=== PATIENT | male | born 1965 | race African-American/Black ===

== ENCOUNTER 2018-05-18 17:10 | Inpatient (IN) | payer OTHER ==
[~2018-05-18] VITALS: Ht 175.3 cm; Wt 98.4 kg
--- NOTE | ~2018-05-18 | P ---
[facility] [place] [address] PROCEDURE REPORT Name: IRENE BERNABE Hector Room #: 457-P ADM IN .R.#: [id number] Admission: 05/18/18 Attend Phys: Kofi Silav MD Discharge: Date of : 69 Report #: [id number] THIS REPORT FOR: //name// CC: CONSUELO physician/PCP Kofi Silva MD NO PCP DATE OF SERVICE: 05/23/2018 PROCEDURE PERFORMED: Upper endoscopy with biopsies. HISTORY OF PRESENT ILLNESS: The patient is a 53-year-old male who was admitted with abdominal pain and chest pain. Cardiac workup has been negative. A CT of his chest was negative for pulmonary embolus. He had a mildly elevated D-dimer. However, the CT of the chest did show hepatic masses which may be due to metastatic disease, which is a new finding. CT scan of the abdomen and pelvis also showing the hepatic masses, no other significant abnormalities other than a possible lesion in the tail of the pancreas. The patient has never had an EGD or colonoscopy. Plan is for EGD and colonoscopy today. DESCRIPTION OF PROCEDURE: The risks and benefits of the procedure were explained to the patient, those risks including but not limited to bleeding, perforation, the risk of sedation. He understood these risks and gave informed consent. Sedation was given using propofol per Anesthesia. Next, using a standard Olympus upper endoscope, the scope was placed in the patient's mouth and advanced under direct vision through the esophagus, stomach and into the second portion of the duodenum. The larynx was normal in appearance. The upper esophagus was normal. Throughout, the mid and distal esophagus, severe grade D erosive esophagitis was noted. No evidence of bleeding. No masses were seen. Overall, the gastric mucosa was normal. Biopsies were obtained to rule out H. pylori. The pylorus was normal and patent. Multiple superficial, clean, white-based ulcers were noted in the duodenal bulb and first portion. The second portion of the duodenum was normal. The scope was then withdrawn and the procedure terminated. The patient tolerated the procedure well. IMPRESSION: 1. Severe grade D erosive esophagitis. 2. Multiple duodenal ulcers. 3. No evidence of bleeding. RECOMMENDATIONS: 1. Await biopsy results. 2. Continue daily b.i.d. PPI therapy and we will add liquid Carafate at this time. We will proceed with colonoscopy next today. [address] [address] PROCEDURE REPORT Name: IRENE BERNABE Room #: 457-P [facility] IN .R.#: [id number] Admission: 05/18/18 Attend Phys: Kofi Silva MD Discharge: Date of : 69 Report #: [id number] Thank you for allowing me to participate in his care. <ELECTRONICALLY SIGNED> By: Vladimir Watson MD 05/24/18 1048 0913 0946 Vladimir Watson MD /rj
--- NOTE | ~2018-05-18 | 2DMMODE ---
[facility] [address] [place] [address] 2 D/M-MODE ECHOCARDIOGRAM Name: IRENE BERNABE Room #: 457-P [facility] IN ..#: [id number] Admission: 05/18/18 Attend Phys: Kofi Silva MD Discharge: Date of : 69 Date of Service: 05/19/18 0855 Report #: [id number] THIS REPORT FOR: //name// APPROVED REPORT Study performed: 05/19/2018 08:29:52 EXAM: Comprehensive 2D, Doppler, and color-flow Echocardiogram Patient Location: Echo lab Room #: [facility] Status: routine BSA: 2.13 HR: 83 bpm BP: 151/101 mmHg Rhythm: NSR Other Information Study Quality: Good Indications Dyspnea Chest Pain 2D Dimensions RVDd: 39.38 mm IVSd: 11.96 (7-11mm) LVOT Diam: 22.61 (18-24mm) LVDd: 46.55 mm PWd: 12.03 (7-11mm) Ascending Ao: 29.90 (22-36mm) LVDs: 31.66 (25-40mm) Aortic Root: 26.27 mm IVC: 14.00 mm Volumes Left Atrial Volume (Systole) Single Plane 4CH: 35.49 mL Single Plane 2CH: 48.62 mL LA ESV Index: 21.00 mL/m2 Aortic Valve AoV Peak Mario.: 1.33 m/s AO Peak Gr.: 7.05 mmHg LVOT Max P.20 mmHg LVOT Max V: 1.03 m/s JOANNE Vmax: 3.10 cm2 Mitral Valve E/A Ratio: 1.5 MV Decel. Time: 189.[address] [facility] [address] [place] [address] 2 D/M-MODE ECHOCARDIOGRAM Name: JEROMEJORDANIRENE Room #: 457-P [facility] IN [facility].#: [id number] Admission: 05/18/18 Attend Phys: Kofi Silva MD Discharge: Date of : 69 Date of Service: 05/19/18 0855 Report #: [id number] MV E Max Mario.: 0.92 m/s MV A Mario.: 0.61 m/s MV PHT: 54.84 ms IVRT: 83.04 ms Pulmonary Valve PV Peak Mario.: 1.22 m/s PV Peak Gr.: 5.99 mmHg Pulmonary Vein P Vein S: 0.57 m/s P Vein A: 0.30 m/s P Vein D: 0.54 m/s P Vein A Dur.: 101.5 msec P Vein S/D Ratio: 1.06 Tricuspid Valve TR Peak Mario.: 2.38 m/s TR Peak Gr.: 22.57 mmHg PA Pressure: 27.00 mmHg Left Ventricle The left ventricle is normal size. There is normal LV segmental wall motion. There is normal left ventricular wall thickness. Left ventricular systolic function is normal. The left ventricular ejection fraction is within the normal range. LVEF is 55-60%. The left ventricular diastolic function is normal. Right Ventricle The right ventricle is normal size. The right ventricular systolic function is normal. Atria The left atrium size is normal. The right atrium size is normal. Aortic Valve The aortic valve is normal in structure. No aortic regurgitation is present. There is no aortic valvular stenosis. Mitral Valve The mitral valve is normal in structure. Trace mitral regurgitation. No evidence of mitral valve stenosis. Tricuspid Valve The tricuspid valve is normal in structure. There is trace tricuspid regurgitation. Estimated PAP 27 mmHg. There is no pulmonary hypertension. [place] [id number] 2 D/M-MODE ECHOCARDIOGRAM Name: JEROMEJORADNIRENE Room #: 457-P [facility] IN ..#: [id number] Admission: 05/18/18 Attend Phys: Kofi Silva MD Discharge: Date of : 69 Date of Service: 05/19/18 0855 Report #: [id number] Pulmonic Valve The pulmonary valve is normal in structure. There is no pulmonic valvular regurgitation. Great Vessels The aortic root is normal in size. IVC is normal in size and collapses >50% with inspiration. Pericardium There is no pericardial effusion. <Conclusion> 1. Normal echocardiogram with Doppler. EF 60% 2. Pulmonary artery pressure of 27mmHg 3. No pericardial effusion <ELECTRONICALLY SIGNED> By: Bashir May MD, FACC 05/19/18854 4 4 Bashir May MD, FACC /INF
--- NOTE | ~2018-05-18 | P ---
[facility] [place] [address] PROCEDURE REPORT Name: IRENE BERNABE Room #: 457-P ADM IN .R.#: [id number] Admission: 05/18/18 Attend Phys: Kofi Silva MD Discharge: Date of : 69 Report #: [id number] THIS REPORT FOR: //name// CC: CONSUELO physician/PCP Kofi Silva MD NO PCP DATE OF SERVICE: 05/23/2018 PROCEDURE PERFORMED: Colonoscopy with biopsies. HISTORY OF PRESENT ILLNESS: The patient is a 53-year-old male who was admitted with abdominal pain, chest pain, elevated D-dimer. A CT scan of the chest initially showed masses in the liver consistent with possible liver metastasis. Upper endoscopy was just performed showing severe grade D erosive esophagitis and duodenal ulcers, but no masses. The patient has never had a colonoscopy. Plan is for colonoscopy next today. DESCRIPTION OF PROCEDURE: The risks and benefits of the procedure were explained to the patient. Those risks including but not limited to bleeding, perforation, and the risk of sedation. He understood these risks and gave informed consent. Sedation was given using propofol per anesthesia. Next, a digital rectal exam was initially performed, which was normal. Next, using a standard Olympus colonoscope, the scope was placed in the patient's anus and advanced under direct vision to the cecum. The overall prep was good. The cecum and ileocecal valve were normal in appearance. Ascending, transverse, descending colon were normal. In the sigmoid colon, a 4 mm sessile polyp was noted. This was removed with cold forceps, otherwise normal. The rectal mucosa was normal. On retroflexion, no abnormalities were noted. The scope was then withdrawn and the procedure terminated. The patient tolerated the procedure well. IMPRESSION: 1. Small colonic polyp. 2. Otherwise, normal colonoscopy. RECOMMENDATIONS: 1. Await biopsy results. 2. Plan is for liver biopsy on Friday of hepatic mass. [facility] [address] [place] [address] PROCEDURE REPORT Name: JEROMEJORDANIRENE Room #: 457-P [facility] IN [facility].#: [id number] Admission: 05/18/18 Attend Phys: Kofi Silva MD Discharge: Date of : 69 Report #: [id number] Thank you for allowing me to participate in his care. <ELECTRONICALLY SIGNED> By: Vladimir Watson MD 05/24/18 1048 0936 1744 Vladimir Watson MD /nt
--- NOTE | ~2018-05-18 | EKG ---
[address] [place] [address] ELECTROCARDIOGRAM REPORT Name: IRENE BERNABE Room #: 457-P ADM IN M.R.#: [id number] Admission: 05/18/18 Attend Phys: Kofi Silva MD Discharge: Date of : 69 Report #: [id number] THIS REPORT FOR: //name// [facility] Test Date: 2018-05-22 Test Time: 15:27:40 Pat Name: IRENE BERNABE Department: Room: 457 Gender: M Administrative Secretary: Max RUIZ : 1965 Requested By: Yung Loomis Order Number: [id number] MD: Bashir May Measurements Intervals [place] Rate: 101 P: 36 CT: 126 QRS: 37 QRSD: 90 T: 171 QT: 340 QTc: 441 Interpretive Statements Sinus tachycardia Nonspecific T abnormalities, lateral leads Compared to ECG 05/19/2018 06:56:12 T-wave abnormality now present Electronically Signed On 05-23-2018 10:57:42 REGULATOR PIN INSERTER by Bashir May [email or web address] <ELECTRONICALLY SIGNED> By: Bashir May MD, [facility] 05/23/18 1057 1527 1527 Bashir May MD, [facility] /EPI
--- NOTE | ~2018-05-18 | EKG ---
[address] [address] ELECTROCARDIOGRAM REPORT Name: IRENE BERNABE Room #: 457-P ADM IN M.R.#: [id number] Admission: 05/18/18 Attend Phys: Kofi Silva MD Discharge: Date of : 69 Report #: [id number] THIS REPORT FOR: //name// [facility] ED Test Date: 2018-05-18 Test Time: 17:15:38 Pat Name: IRENE BERNABE Department: Room: [facility] Gender: M Supervisor Facepiece Line: NEHA : 1965 Requested By: Dayday Ring Order Number: [id number] MD: Wesley Marks Measurements Intervals [place] Rate: 114 P: 39 VT: 143 QRS: 27 QRSD: 84 T: 32 QT: 323 QTc: 445 Interpretive Statements Sinus tachycardia Consider left ventricular hypertrophy Baseline wander in lead(s) V1 Compared to ECG 12/03/2010 14:33:18 Sinus rhythm no longer present Electronically Signed On 05-18-2018 21:42:45 FORESTRY FIRE AIDE by Wesley Marks [email or web address] <ELECTRONICALLY SIGNED> By: Wesley Marks MD 05/18/18 2142 1715 Wesley Marks MD /EPI
--- NOTE | ~2018-05-18 | HC ---
[facility] [place] [address] CONSULTATION Name: IRENE BERNABE Hector Room #: 457-P ADM IN M.R.#: [id number] Admission: 05/18/18 Attend Phys: Kofi Silva MD Discharge: Date of : 69 Report #: [id number] THIS REPORT FOR: //name// CC: Marie Meza DO [facility] physician/PCP Kofi Silva MD NO PCP DATE OF SERVICE: 05/20/2018 REASON FOR CONSULTATION: Abnormal CAT scan of the abdomen, specifically liver, provided by Dr. Bo Phelps. HISTORY OF PRESENT ILLNESS: The patient is a very pleasant 53-year-old male from [place], who was admitted because of chest discomfort of maybe about several hours duration. When he came here, a CAT scan of the chest showed some questionable changes in the liver and repeat additional imaging has shown there were some changes in the liver for metastatic cancer. The patient, before this, denied any fevers, chills, nausea, vomiting or new arm or leg swelling. He does have occasional headaches. He has bowel movements about every 2 days. The chest discomfort had resolved by the time I had seen him. The scans here include a CTA chest that showed no pulmonary embolism, but did show there were some changes for metastatic disease to the liver. A subsequent CT abdomen showed a left lobe mass, measuring 5.6 x 4.6 cm; an additional mass in the left lobe, measuring 3.3 x 2.4 and a right lobe, measuring 15 x 10 mm. There were also multiple lesions in the right lobe. Pancreas had calcification to the tail with slight hypodensity and there may be a tail mass measuring 2 x 2.2 cm. Gallbladder was normal. Spleen was normal, though there was a calcified lesion. Adrenal glands were normal. No significant retroperitoneal adenopathy. LABORATORY DATA: Lab work here notable for BUN of 14, creatinine 0.9. AST slightly elevated at 6439 today, alkaline phosphatase 125 and ALT elevated at 70. Albumin 3.1. White count 5.1, hemoglobin 13.8, MCV 85.3 and platelets 281,000. Differential normal. Hepatitis A, B and C tests were negative, if I understand and interpret them correctly. CEA and CA-125 pending. CA 19-9 was 31. FAMILY HISTORY: He does not know much about his mother or his father. He has two sisters, alive and well and two daughters, alive and well. 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 He works sometimes for [employer]. He stopped smoking about a year ago. Occasional alcohol, would need to clarify. No street drugs. [facility] [address] [address] CONSULTATION Name: IRENE BERNABE Hector Room #: 457-P [facility] IN M.R.#: [id number] Admission: 05/18/18 Attend Phys: Kofi Silva MD Discharge: Date of : 69 Report #: [id number] PHYSICAL EXAMINATION: GENERAL: The patient appears his stated age. VITAL SIGNS: His height is 6, reported as 5 feet 9 inches or 175.3 cm. Weight 216.9 pounds or 98.4 kilograms. Blood pressure on 05/20/2018 was 133/83, O2 sat 97%, pulse 75 and respirations 16. He has been afebrile. MOOD: He is alert, pleasant. NEUROLOGIC: Face is symmetric. Moving arms and legs. Speech and thought pattern appear to be normal. LYMPHATICS: No enlarged lymph nodes in the supraclavicular, cervical, axillary, inguinal or epitrochlear region. ABDOMEN: Slightly obese, maybe slightly tender related to constipation. No obvious masses. No fluid wave. EXTREMITIES: Without clubbing, cyanosis or edema. ASSESSMENT AND PLAN: 1. Abnormal CT of the abdomen, worrisome for metastatic changes. Discussed with the patient that we are aware this may be cancer, though it could be infection or could be geographic changes. I agree with the plans for image-guided biopsy. 2. Hypertension. Defer to others. 3. Constipation and metastasis to the liver that is obvious primary. I agree with plans for EGD and colonoscopy. We will follow with you. <ELECTRONICALLY SIGNED> By: Bo Phelps MD 05/21/18 1646 0826 0940 Bo Phelps MD /nt
--- NOTE | ~2018-05-18 | EKG ---
[address] [address] ELECTROCARDIOGRAM REPORT Name: IRENE BERNABE Room #: 457-P ADM IN M.R.#: [id number] Admission: 05/18/18 Attend Phys: Kofi Silva MD Discharge: Date of : 69 Report #: [id number] THIS REPORT FOR: //name// [facility] Test Date: 2018-05-19 Test Time: 06:56:12 Pat Name: IRENE BERNABE Department: Room: 457 Gender: M Tack Driller: ARUNA : 1965 Requested By: Krista Wheeler Order Number: [id number] MD: Bashir May Measurements Intervals [place] Rate: 86 P: 27 MS: 138 QRS: 28 QRSD: 89 T: 22 QT: 345 QTc: 413 Interpretive Statements Sinus rhythm Normal tracing Compared to ECG 05/18/2018 17:15:38 Sinus tachycardia no longer present Electronically Signed On 05-19-2018 8:41:05 TEST MAN by Bashir May [email or web address] <ELECTRONICALLY SIGNED> By: Bashir May MD, [facility] 05/19/18 0841 0656 0656 Bashir May MD, FACC /EPI
--- NOTE | ~2018-05-18 | PATH ---
[facility] [address] [place] [address] PATHOLOGY RPT PROCEDURE Name: IRENE BERNABE Hector Room #: 220-P [facility] IN M.R.#: [id number] Admission: 05/18/18 Date of : 69 Discharge: 05/25/18 Report #: [id number] Path Case #: [id number] [facility] Accession Number: [id number] . 01 Material submitted: . LIVER, LT LOBE 3 CORES . 01 Clinical history: . Left lobe 3 cores . 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 . (IUV:mml; 05/27/18) QLM/05/27/2018 . 02 Comment: History of multiple liver masses, as well as a pancreatic tail mass is gathered. Based on the morphology of the tumor, immunohistochemical stains are ordered. The tumor shows membranous reactivity to CK19. The tumor is mostly nonreactive to Hep-Par, CK7 and CD68. Based on the non-reactive immunohistochemical stains, a fibrolamellar carcinoma, or hepatocellular carcinoma are not likely. 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 Focal luminal reactivity is noted to CEA-monoclonal. Dr. Maame Castro has seen this case and concurs with my diagnosis. The findings of this case discussed with Dr. Bo Phelps in the morning of 05/27/18. . (IUV:mml; 05/27/18) . 02 Electronically signed: . Kylee Bay MD, Pathologist NPI- [id number] . 01 Gross description: . The specimen is received in formalin, labeled "Irene Bernabe, left lobe liver" and consists of 5 needle cores of lawrence-brown tissue measuring between 0.3 cm and 2.5 cm in length and 0.1 cm or less each in diameter. They are entirely submitted in A1. (SDY; 05/25/2018) SYU/SYU . 02 Pathologist provided ICD-10: [address] [address] PATHOLOGY RPT PROCEDURE Name: IRENE BERNABE Room #: 220-P [facility] IN M.R.#: [id number] Admission: 05/18/18 Date of : 69 Discharge: 05/25/18 Report #: [id number] Path Case #: [id number] C78.7 . 02 CPT . 208632, [id number], [id number] Specimen Comment: A courtesy copy of this report has been sent to Specimen Comment: [phone]. Specimen Comment: Report sent to Performed at: [address], [place], [place] [id number] MD Yoni Simental MD Phone: [phone] Performed at: [address] [id number] MD Kylee Bay MD Phone: [phone]
--- NOTE | ~2018-05-18 | PATH ---
[facility] [address] [place] [address] PATHOLOGY RPT PROCEDURE Name: FLORECITAIRENE Hector Room #: 220-P DIS IN M.R.#: [id number] Admission: 05/18/18 Date of : 69 Discharge: 05/25/18 Report #: [id number] Path Case #: [id number] [facility] Accession Number: [id number] . 01 Material submitted: . PART A: GASTRIC BX PART B: POLYP AT SIGMOID COLON . 01 Clinical history: . A: Rule out H. pylori and duodenal ulcer . 02 Diagnosis: A. Gastric mucosa, gastric rule out Helicobacter pylori and duodenal ulcer, endoscopic biopsy: - Features of mild reactive gastropathy. - Negative for intestinal metaplasia or atrophy. - Negative for Helicobacter pylori (properly controlled immunohistochemical stain performed). . B. Polyp, at sigmoid colon, endoscopic biopsy: - Hyperplastic polyp. - Negative for dysplasia. . (IUV:at;05/26/2018) QTA/05/26/2018 . 02 Electronically signed: . Kylee Bay MD, Pathologist NPI- [id number] . 01 Gross description: . A. The specimen is received in formalin, labeled "Irene Bernabe, gastric BX" and consists of multiple fragments of soft lawrence tissue measuring 0.9 x 0.6 x 0.2 cm in aggregate which are entirely submitted in A1. . B. The specimen is received in formalin, labeled "Irene Bernabe, polyp at sigmoid colon" and consists of 2 fragments of soft lawrence tissue measuring 0.4 x 0.2 x 0.1 cm and 0.3 x 0.2 x 0.2 cm. They are entirely submitted in B1. (SDY; 05/25/2018) SYU/SYU . 02 Pathologist provided ICD-10: K31.9, K63.5 . [address] [facility] [place] [address] PATHOLOGY RPT PROCEDURE Name: IRENE BERNABE Hector Room #: 220-P [facility]#: [id number] Admission: 05/18/18 Date of : 69 Discharge: 05/25/18 Report #: [id number] Path Case #: [id number] Specimen Comment: A courtesy copy of this report has been sent to Specimen Comment: [phone], . Specimen Comment: Report sent to / DR GONZALEZ Performed at: [address] [facility] [address], [place], [place] [id number] MD Yoni Simental MD Phone: [phone] Performed at: [address] [id number] MD Kylee Bay MD Phone: [phone]
[~2018-05-18 17:10] MED LIST: NORCO 5-325 TA1 EACH PO; PENICILLIN VK500 M1 PO
[2018-05-18 17:15] VITALS: BP 173/108
[2018-05-18 17:42] LABS: ABSOLUTE NEUTROPHILS 2.9 thou/uL (1.4-8.2); BASOPHILS 0.9 % (0.0-2.0); EOSINOPHILS 2.2 % (0.0-3.0); HEMATOCRIT 43.9 % (42.0-52.0); HEMOGLOBIN 15.1 gm/dL (14.0-18.0); LYMPHOCYTES 25.1 % (24.0-44.0); MCH 29.3 pg (26.0-34.0); MCHC 34.4 g/dL (28.0-37.0); MCV 85.3 fL (80.0-100.0); MONOCYTES 7.1 % (1.0-8.0); PLATELET COUNT 279 thou/uL (150-400); POLYS 64.7 % (36.0-66.0); RBC 5.15 mil/uL (4.50-6.00); RDW 12.5 % (10.5-14.5); WBC 4.5 thou/uL (4.0-11.0)
[2018-05-18 17:55] LABS: ANION GAP 7 mmol/L (7-16); BUN 19 mg/dL (7-18); CALCIUM 9.3 mg/dL (8.5-10.1); CHLORIDE 102 mmol/L (98-107); CO2 26 mmol/L (21-32); GLUCOSE 147 mg/dL (74-106); POTASSIUM 3.7 mmol/L (3.5-5.1); SODIUM 135 mmol/L (136-145)
[2018-05-18 18:03] LABS: TROPONIN-I <0.06 ng/mL (<0.06)
[2018-05-18 19:24] LABS: ALBUMIN 3.7 g/dL (3.4-5.0); DIRECT BILIRUBIN 0.1 mg/dL (<0.1-0.3); TOTAL BILIRUBIN 0.4 mg/dL (<0.1-1.0); TOTAL PROTEIN 7.8 g/dL (6.4-8.2)
[2018-05-18 20:00] VITALS: BP 145/98
[2018-05-18 20:34] VITALS: BP 155/109
[2018-05-19 02:40] LABS: ANION GAP 5 mmol/L (7-16); BUN 14 mg/dL (7-18); CALCIUM 8.4 mg/dL (8.5-10.1); CHLORIDE 104 mmol/L (98-107); CO2 29 mmol/L (21-32); CREATININE 0.9 mg/dL (0.7-1.3); GLUCOSE 92 mg/dL (74-106); POTASSIUM 3.9 mmol/L (3.5-5.1); SODIUM 138 mmol/L (136-145)
[2018-05-19 02:47] LABS: HEMATOCRIT 40.4 % (42.0-52.0); HEMOGLOBIN 13.8 gm/dL (14.0-18.0); MCH 29.1 pg (26.0-34.0); MCHC 34.1 g/dL (28.0-37.0); MCV 85.3 fL (80.0-100.0); RBC 4.74 mil/uL (4.50-6.00); RDW 12.5 % (10.5-14.5); WBC 5.1 thou/uL (4.0-11.0)
[2018-05-19 02:48] LABS: CHOLESTEROL 182 mg/dL (<200); HDL CHOLESTEROL 59 mg/dL (>40); LDL CHOLESTEROL 111 mg/dL (<100); TC:HDL 3.1 Ratio (Not establshd); TRIGLYCERIDE 60 mg/dL (<150); TROPONIN-I <0.06 ng/mL (<0.06); VLDL 12 mg/dL (<40)
[2018-05-19 03:00] LABS: SERUM ASSESSMENT Clear
[2018-05-19 03:09] VITALS: BP 152/101
[2018-05-19 07:30] VITALS: BP 152/96
[2018-05-19 11:58] LABS: % SATURATION 18 % (20-39); IRON 44 ug/dL (65-175); TIBC 242 ug/dL (250-450)
[2018-05-19 15:32] VITALS: BP 157/99
[2018-05-19 20:02] VITALS: BP 144/80
[2018-05-19 23:07] LABS: HAV IgM AB (ANTI-HAV IgM) Negative (Negative); HEPATITIS B SURFACE AG Negative (Negative); HEPATITIS C VIRUS AB <0.1 (0.0-0.9)
[2018-05-20 05:07] VITALS: BP 133/83
[2018-05-20 05:32] LABS: ALBUMIN 3.1 g/dL (3.4-5.0); DIRECT BILIRUBIN 0.1 mg/dL (<0.1-0.3); TOTAL BILIRUBIN 0.4 mg/dL (<0.1-1.0); TOTAL PROTEIN 6.5 g/dL (6.4-8.2)
[2018-05-20 08:08] VITALS: BP 158/95
[2018-05-20 08:54] LABS: APTT 28.5 Seconds (24.5-32.8); PROTIME 10.1 Seconds (9.3-11.4)
[2018-05-20 15:11] VITALS: BP 148/97
[2018-05-20 19:47] VITALS: BP 146/95
[2018-05-21 02:50] VITALS: BP 113/62
[2018-05-21 07:26] VITALS: BP 129/81
[2018-05-21 13:09] LABS: CA 125 9.5 U/mL (Not Estab.)
[2018-05-21 14:35] VITALS: BP 135/91
[2018-05-21 19:33] VITALS: BP 133/84
[2018-05-22 03:09] VITALS: BP 109/63
[2018-05-22 05:09] LABS: CEA 3.3 ng/mL (0.0-4.7)
[2018-05-22 08:40] VITALS: BP 126/78
[2018-05-22 17:36] VITALS: BP 153/98
[2018-05-22 18:59] VITALS: BP 131/82
[2018-05-23 06:16] VITALS: BP 142/82
[2018-05-23 10:37] LABS: HEMATOCRIT 44.9 % (42.0-52.0); HEMOGLOBIN 15.5 gm/dL (14.0-18.0); MCH 29.4 pg (26.0-34.0); MCHC 34.4 g/dL (28.0-37.0); MCV 85.4 fL (80.0-100.0); RBC 5.26 mil/uL (4.50-6.00); RDW 12.3 % (10.5-14.5); WBC 9.9 thou/uL (4.0-11.0)
[2018-05-23 11:08] LABS: CREATININE 1.2 mg/dL (0.7-1.3); MAGNESIUM 1.9 mg/dL (1.8-2.4); POTASSIUM 3.8 mmol/L (3.5-5.1)
[2018-05-23 19:19] VITALS: BP 143/98
[2018-05-24 03:44] VITALS: BP 125/80
[2018-05-24 08:00] VITALS: BP 158/104
[2018-05-24 16:00] VITALS: BP 128/85
[2018-05-24 18:18] VITALS: BP 153/97
[2018-05-24 22:32] VITALS: BP 134/88
[2018-05-25 07:10] VITALS: BP 140/85
[2018-05-25 10:20] VITALS: BP 157/94
[2018-05-25 10:25] VITALS: BP 152/88
[2018-05-25 10:30] VITALS: BP 166/96
[2018-05-25 10:34] VITALS: BP 162/99
[2018-05-25] MEDS ORDERED: NORVASC5 MG PO (12:49)
[2018-05-25] MEDS ORDERED: PROTONIX40 M1 PO (12:49)
[2018-05-25] MEDS ORDERED: MIRALAX17 GM PO (12:49)
[2018-05-25] MEDS ORDERED: BAYER CHEWABLE81 MG PO (12:49)
[2018-05-25] MEDS ORDERED: COLACE100 MG PO (12:49)
[2018-05-25] MEDS ORDERED: CARAFATE 11 GM/10 M1 PO (12:49)
[2018-05-25] MEDS ORDERED: TRAMADOL 50 MG50 MG PO (12:50)
[2018-05-25 13:47] VITALS: BP 162/99
== END 2018-05-25 15:45 | disposition home or self-care (01) | DRG 442 ==
LOC: ER 17:10 → 4W 19:41 → EROBS 19:41 → 4W 20:30 → SICU 05-24 17:45 → ENTRNSPT 05-25 14:42 → EDTRNSPTSTS 05-25 14:45 → SICU 05-25 15:45
PROVIDERS: Internal Medicine; Nurse Practitioner; Nurse Practitioner Family; Physician Assistant; Radiology Vascular & Interventional Radiology; Specialist
DX: K76.89 Other specified diseases of liver (principal); K22.10 Ulcer of esophagus without bleeding; I10 Essential (primary) hypertension; K59.00 Constipation, unspecified; K26.9 Duodenal ulcer, unspecified as acute or chronic, without hemorrhage or perforation; K63.5 Polyp of colon; R74.0 Nonspecific elevation of levels of transaminase and lactic acid dehydrogenase [LDH]; K21.0 Gastro-esophageal reflux disease with esophagitis; K86.9 Disease of pancreas, unspecified; Z83.3 Family history of diabetes mellitus; Z82.49 Family history of ischemic heart disease and other diseases of the circulatory system; Z79.82 Long term (current) use of aspirin; Z79.899 Other long term (current) drug therapy
CPT/HCPCS: 10045; 15002; 62110; 62900

== ENCOUNTER 2018-07-29 22:05 | Emergency (ER) | payer OTHER ==
[~2018-07-29] VITALS: Ht 175.3 cm; Wt 86.2 kg
[~2018-07-29 22:05] MED LIST changes: +BAYER CHEWABLE81 MG PO; +CARAFATE 11 GM/10 M1 PO; +COLACE100 MG PO; +MIRALAX17 GM PO; +NORVASC5 MG PO; +PROTONIX40 M1 PO; +TRAMADOL 50 MG50 MG PO
[2018-07-29 22:56] LABS: ABSOLUTE NEUTROPHILS 5.6 thou/uL (1.4-8.2); BASOPHILS 0.4 % (0.0-2.0); EOSINOPHILS 1.8 % (0.0-3.0); LYMPHOCYTES 11.1 % (24.0-44.0); MCH 29.2 pg (26.0-34.0); MCHC 34.7 g/dL (28.0-37.0); MCV 84.2 fL (80.0-100.0); MONOCYTES 6.9 % (1.0-8.0); PLATELET COUNT 303 thou/uL (150-400); POLYS 79.8 % (36.0-66.0); RBC 5.46 mil/uL (4.50-6.00); RDW 12.4 % (10.5-14.5)
[2018-07-29 23:04] LABS: ANION GAP 8 mmol/L (7-16); BUN 16 mg/dL (7-18); CALCIUM 9.5 mg/dL (8.5-10.1); CHLORIDE 100 mmol/L (98-107); CO2 28 mmol/L (21-32); CREATININE 1.2 mg/dL (0.7-1.3); GLUCOSE 128 mg/dL (74-106); POTASSIUM 4.3 mmol/L (3.5-5.1); SODIUM 136 mmol/L (136-145)
[2018-07-29 23:13] LABS: ALBUMIN 3.8 g/dL (3.4-5.0); LIPASE 219 U/L (73-393); SGOT 61 U/L (15-37); SGPT 69 U/L (30-65); TOTAL BILIRUBIN 0.7 mg/dL (<0.1-1.0); TOTAL PROTEIN 8.1 g/dL (6.4-8.2); TROPONIN-I <0.06 ng/mL (<0.06)
[2018-07-29 23:20] LABS: URINE BILIRUBIN NEGATIVE (Negative); URINE BLOOD NEGATIVE (Negative); URINE CLARITY CLEAR; URINE COLOR YELLOW; URINE GLUCOSE-RANDOM* NEGATIVE (Negative); URINE KETONES TRACE (Negative); URINE LEUKOCYTES-REFLEX NEGATIVE (Negative); URINE NITRITE-REFLEX NEGATIVE (Negative); URINE PROTEIN (DIPSTICK) TRACE (Negative); URINE SPECIFIC GRAVITY >= 1.030 (1.005-1.035); URINE UROBILINOGEN 0.2 E.U./dl (0.2-1.0)
[2018-07-29] MEDS ORDERED: PROTONIX40 MG PO (23:57)
[2018-07-30 00:10] VITALS: BP 124/81
[2018-07-30] MEDS ORDERED: CARAFATE 1 GM TA1 G1 PO (00:10)
[2018-07-30] MEDS ORDERED: CARAFATE 11 GM/10 M1 PO (00:16)
--- NOTE | 2018-07-30 16:38 | EKG ---
[address] [address] ELECTROCARDIOGRAM REPORT Name: IRENE BERNABE [facility] [id number] ������������������ Admission: 07/29/18 ������������������ Attend Phys: Discharge: 07/30/18 ������������������ Date of : 69 Report #: [id number] ����������������������������������������������������������������� [id number] THIS REPORT FOR: //name// [facility] ED Test Date: 2018-07-29 Test Time: 22:32:08 Pat Name: IRENE BERNABE Department: Room: Gender: M Hat Sizer: : 1965 Requested By: Woody Fox Order Number: [id number] MD: Wesley Marks Measurements Intervals [place] Rate: 85 P: 38 WA: 133 QRS: 40 QRSD: 89 T: 47 QT: 354 QTc: 421 Interpretive Statements Sinus rhythm Borderline T wave abnormalities Compared to ECG 05/22/2018 15:27:40 Sinus tachycardia no longer present T-wave abnormality still present Electronically Signed On 07-30-2018 16:38:41 QUANTITATIVE EQUITY HEAD by Wesley Marks [email or web address] ��������������������������������������������� <ELECTRONICALLY SIGNED> ���������������������������������������� By: Wesley Marks MD ��������������������������������������������� 07/30/18 1638 31 31 Wesley Marks MD /ALEJA
== END 2018-07-30 02:23 | disposition home or self-care (01) ==
LOC: ER 22:05
PROVIDERS: Emergency Medicine
DX: K21.0 Gastro-esophageal reflux disease with esophagitis (principal); C25.9 Malignant neoplasm of pancreas, unspecified; C78.7 Secondary malignant neoplasm of liver and intrahepatic bile duct; R19.7 Diarrhea, unspecified